=== PATIENT | female | born 1965 | race Caucasian/White ===

== ENCOUNTER 2021-10-18 18:12 | Emergency (ER) | payer OTHER ==
[~2021-10-18] VITALS: Ht 162.6 cm; Wt 77.3 kg
[2021-10-18] MEDS ORDERED: AMOXICILLIN 8751 TAB PO (19:30)
[2021-10-18 19:57] VITALS: BP 146/86; PULSE 61; TEMP 97.6
== END 2021-10-18 19:57 | disposition home or self-care (01) ==
LOC: COL.ER 18:12
DX: S02.2XXA Fracture of nasal bones, initial encounter for closed fracture (principal); Z28.310 Unvaccinated for COVID-19; Z88.6 Allergy status to analgesic agent; W22.8XXA Striking against or struck by other objects, initial encounter
CPT/HCPCS: J1885